=== PATIENT | female | born 1975 | race Caucasian/White ===

== ENCOUNTER 2017-04-19 11:17 | Emergency (ER) | payer BC, OTHER ==
[2017-04-19] MEDS ORDERED: ALBUTEROL NEB 2.5 MG/3 ML INH STA (11:47)
[2017-04-19] MEDS ORDERED: DEXAMETHASONE 10 MG/ML VIAL PO STA (11:47)
[2017-04-19] MEDS ORDERED: CHERRY SYRUP 10 ML UDC PO ONE (11:49)
[2017-04-19] MEDS ORDERED: DEXAMETHASONE 10 MG/ML VIAL ONE (11:49)
--- NOTE | 2017-04-19 11:50 | ED Physician Documentation ---
History of Present Illness - Stated complaint Stated Complaint: DIFFICUTLY BREATHING - Chief complaint Chief Complaint: Resp - Additonal information Additional information: hx from pt 41 y/o f denies preg known asthma 8 weeks of cough, pleurtic cp and soa on qvar, using albuterol MDI s spacer 6 X per day and on prednsione 10 mg daily sx persist called PMD and sent to ER no leg pain swelling Review of Systems Constitutional: denies: Fever, Chills Cardiac: reports: Chest pain / pressure Respiratory: reports: Dyspnea, Cough, Wheezing GI: denies: Abdominal Pain : denies: Now EGA Musculoskeletal: denies: Extremity swelling PD PAST MEDICAL HISTORY - Past Medical History Cardiovascular: None Respiratory: None Neuro: None Endocrine/Autoimmune: HyPOthyroidism GI: None : None HEENT: None Psych: None Musculoskeletal: None Derm: None - Past Surgical History Past Surgical History: Yes General: Cholecystectomy HEENT: Other - Present Medications Home Medications: Ambulatory Orders Medication Instructions Recorded Confirmed Albuterol Sulfate [Proair Hfa 1 inh INH .FREQ 04/19/17 04/19/17 Inhaler] Beclomethasone 40 Mcg [Qvar 40] 1 inh INH BID 04/19/17 04/19/17 Benzonatate [Tessalon] 100 mg PO TID PRN #20 capsule 04/19/17 Liothyronine [Cytomel] 25 mg PO DAILY 04/19/17 04/19/17 Prednisone 10 mg PO DAILY 04/19/17 04/19/17 guaiFENesin/DEXTROMETHORPHAN 10 ml PO Q6H PRN #120 ml 04/19/17 [Robitussin Dm] predniSONE [Deltasone] 20 mg PO [id number] #21 tab 04/19/17 - Allergies Allergies/Adverse Reactions: Allergies Allergy/AdvReac Type Severity Reaction Status Date / Time codeine Allergy Nausea Verified 04/19/17 11:22 gluten Allergy Hives Verified 04/19/17 11:22 lactose Allergy Hives Verified 04/19/17 11:22 beans AdvReac Cramps Uncoded 04/19/17 11:22 chocolate AdvReac Rash Uncoded 04/19/17 11:22 - Social History Does the pt smoke?: No Smoking Status: Former smoker Does the pt drink ETOH?: Yes Does the pt have substance abuse?: No - Immunizations Immunizations are current?: No Immunizations: TDAP >10years/unknown - POLST Patient has POLST: No PD ED PE NORMAL - Vitals Vital signs reviewed: Yes - General General: Alert and oriented X 3 - Neck Neck: Supple, no meningeal sign - Cardiac Cardiac: RRR - Respiratory Respiratory: Other (shallow) - Abdomen Abdomen: Soft, Non tender - Extremities Extremities: Normal ROM s pain, No edema, No calf tenderness / cord - Neuro Neuro: Alert and oriented X 3, No motor deficit - Psych Psych: Normal mood Results - Vitals Vitals: Vital Signs - 24 hr 04/19/17 04/19/17 04/19/17 11:20 12:00 13:20 Temperature 36.9 C Heart Rate 71 80 81 Respiratory 19 20 Rate Blood Pressure 128/78 O2 Saturation 99 98 Oxygen O2 Source Room air - Labs Labs: Laboratory Tests 04/19/17 04/19/17 13:53 13:53 D-Dimer 232.1 Creatinine 0.7 Estimated GFR (MDRD) 93 Serum HCG, Qual NEGATIVE - Rads (name of study) CXR Radiology: See rad report (bronchiol cuffing c/w airway dx, no pna) PD MEDICAL DECISION MAKING - ED course ED course: neg CXR neg d dimer better with triple neb inc steroid dose gave pt MDI to better utilize her MDI will reassure and dc Departure - Departure Disposition: 01 Home, Self Care Clinical Impression: Asthma Qualifiers: Asthma severity: unspecified severity Asthma complication type: with acute exacerbation Qualified Code(s): J45.901 - Unspecified asthma with (acute) exacerbation Condition: Good Instructions: ED Reactive Airway Disease, ED Inhaler Use Follow-Up: Carlyn Canseco PA [Primary Care Provider] - Prescriptions: predniSONE [Deltasone] 20 mg PO [id number] #21 tab guaiFENesin/DEXTROMETHORPHAN [Robitussin Dm] 10 ml PO Q6H PRN #120 ml PRN Reason: Cough Benzonatate [Tessalon] 100 mg PO TID PRN #20 capsule PRN Reason: to ease cough Comments: The xray was fine - no pneumonia The blood tests indicate you do not have a blood clot in your lungs I have increased the steroid dose to try and reduce your airway inflammation And we gave you a spacer to help you get more medication from your inhaler into your lungs And some cough medication to ease the cough and pain. You can also take tylenol for the chest pain. If you think seasonal allergies might be contributing to your asthma I recommend flonase and claritin as well - both available over the counter Forms: Activity restrictions
[2017-04-19] MEDS ORDERED: ALBUTEROL NEB 2.5 MG/3 ML INH ONE (11:56)
[2017-04-19] MEDS ORDERED: KETOROLAC 60 MG/2 ML VIAL IM STA (12:38)
[2017-04-19] MEDS ORDERED: KETOROLAC 60 MG/2 ML VIAL ONE (12:48)
--- NOTE | 2017-04-19 12:55 | XRAY Preliminary Report ---
Exam: XR Chest 2 View PA/LAT IMPRESSION: Bronchial cuffing with increased lung markings may be due to airways disease or bronchiti s/bronchiolitis [facility] SITE ID: [id number]
--- NOTE | 2017-04-19 12:57 | XRAY Report ---
EXAM: CHEST RADIOGRAPHY EXAM DATE: 04/19/2017 12:37 PM. CLINICAL HISTORY: Cough soa pleuritic cp. COMPARISON: Chest radiograph 03/16/2010. TECHNIQUE: 2 views. FINDINGS: Lungs/Pleura: Bronchial cuffing with increased lung markings. No focal opacities. No effusions. Mediastinum: Heart and mediastinal contours are unremarkable. Other: Status post cholecystectomy IMPRESSION: Bronchial cuffing with increased lung markings may be due to airways disease or bronchiti s/bronchiolitis [facility] Referring Provider Line: [phone] SITE ID: [id number]
[2017-04-19 14:23] LABS: CREATININE 0.7 mg/dL (0.4-1.0); GFR - MDRD 93 (>89)
[2017-04-19 14:45] VITALS: BP 121/85
== END 2017-04-19 14:43 | disposition home or self-care (01) ==
LOC: ED 11:17
DX: J45.901 Unspecified asthma with (acute) exacerbation (principal); E03.9 Hypothyroidism, unspecified; Z87.891 Personal history of nicotine dependence
CPT/HCPCS: 36415; 71020; 82565; 84703; 85379; 94640; 94664; 96372; 99283; A9270; J7613

== ENCOUNTER 2017-07-06 20:00 | Emergency (ER) | payer OTHER ==
[2017-07-06 20:25] LABS: BILIRUBIN,URINE NEGATIVE (NEGATIVE); PH,URINE 5.5 PH (5.0-7.5); UA w/ MICROSCOPIC CHARGE YES
[2017-07-06 20:26] LABS: HCG UR QUAL NEGATIVE
[2017-07-06 20:35] LABS: UR CULTURE IF IND NOT INDICATED; WBC,URINE 0-3 /HPF (0-5)
--- NOTE | 2017-07-06 20:51 | ED Physician Documentation ---
PD HPI ABD PAIN - Stated complaint Stated Complaint: R FLANK PAIN - Chief complaint Chief Complaint: Abd Pain - History obtained from History obtained from: Patient - History of Present Illness Timing - onset: Enter time (08:00), Today Timing - duration: Hours Timing - details: Gradual onset, Constant, Waxing and waning Pain level now: 9 Quality: Pain Location: Other (right flank) Radiation: Lower back Improved by: Laying still Worsened by: Moving Associated symptoms: Fever (x 2 days, Tmax 101). No: Nausea, Vomiting, Diarrhea , Constipation, Chest pain Similar symptoms before: Has not had sx before Recently seen: Not recently seen Review of Systems Constitutional: reports: Fever Cardiac: reports: Reviewed and negative Respiratory: reports: Reviewed and negative GI: reports: Abdominal Pain. denies: Nausea, Vomiting, Constipation, Diarrhea : denies: Dysuria, Frequency Skin: reports: Reviewed and negative PD PAST MEDICAL HISTORY - Past Medical History Cardiovascular: None Respiratory: None Neuro: None Endocrine/Autoimmune: HyPOthyroidism GI: None : None HEENT: None Psych: None Musculoskeletal: None Derm: None - Past Surgical History Past Surgical History: Yes General: Cholecystectomy HEENT: Other - Present Medications Home Medications: Ambulatory Orders Medication Instructions Recorded Confirmed Albuterol Sulfate [Proair Hfa 1 inh INH .FREQ 04/19/17 04/19/17 Inhaler] Beclomethasone 40 Mcg [Qvar 40] 1 inh INH BID 04/19/17 04/19/17 Benzonatate [Tessalon] 100 mg PO TID PRN #20 capsule 04/19/17 Liothyronine [Cytomel] 25 mg PO DAILY 04/19/17 04/19/17 Prednisone 10 mg PO DAILY 04/19/17 04/19/17 guaiFENesin/DEXTROMETHORPHAN 10 ml PO Q6H PRN #120 ml 04/19/17 [Robitussin Dm] predniSONE [Deltasone] 20 mg PO [id number] #21 tab 04/19/17 - Allergies Allergies/Adverse Reactions: Allergies Allergy/AdvReac Type Severity Reaction Status Date / Time codeine Allergy Nausea Verified 07/06/17 20:05 gluten Allergy Hives Verified 07/06/17 20:05 lactose Allergy Hives Verified 07/06/17 20:05 beans AdvReac Cramps Uncoded 07/06/17 20:05 chocolate AdvReac Rash Uncoded 07/06/17 20:05 - Social History Does the pt smoke?: No Smoking Status: Former smoker Does the pt drink ETOH?: Yes Does the pt have substance abuse?: No - Immunizations Immunizations are current?: No Immunizations: TDAP >10years/unknown - POLST Patient has POLST: No PD ED PE NORMAL - Vitals Vital signs reviewed: Yes - General General: Alert and oriented X 3, No acute distress, Well developed/nourished - HEENT HEENT: Moist mucous membranes - Cardiac Cardiac: RRR, No murmur - Respiratory Respiratory: No respiratory distress, Clear bilaterally - Abdomen Abdomen: Soft, Non distended, Other (there is minimal tenderness elicited with deep palpation of RLQ and right periumbilical region without rebound or guarding ) - Back Back: No CVA TTP - Derm Derm: Normal color, No rash Results - Vitals Vitals: Vital Signs - 24 hr 07/06/17 07/06/17 07/06/17 20:05 21:41 22:15 Temperature 35.9 C L 37.0 C Heart Rate 63 59 L 72 Respiratory 18 16 14 Rate Blood Pressure 142/87 H 111/74 109/69 O2 Saturation 100 100 97 07/06/17 07/06/17 07/07/17 22:37 23:43 00:29 Temperature 36.6 C 36.3 C L Heart Rate 57 L 66 65 Respiratory 16 16 16 Rate Blood Pressure 119/77 131/76 H 118/68 O2 Saturation 100 98 99 Oxygen O2 Source Room air - Labs Labs: Laboratory Tests 07/06/17 07/06/17 07/06/17 20:00 21:30 21:30 WBC 4.4 L RBC 4.59 Hgb 14.6 Hct 42.6 MCV 92.9 MCH 31.9 H MCHC 34.3 RDW 13.0 Plt Count 157 MPV 9.3 Neut # 2.3 Lymph # 1.5 Bell # 0.5 Eos # 0.1 Baso # 0.0 Absolute Nucleated RBC 0.00 Nucleated RBCs 0.0 Sodium 138 Potassium 3.5 Chloride 104 Carbon Dioxide 26 Anion Gap 8.0 BUN 14 Creatinine 0.9 Estimated GFR (MDRD) 70 L Glucose 91 Calcium 8.5 Total Bilirubin 0.5 AST 23 ALT 22 Alkaline Phosphatase 56 Total Protein 6.9 Albumin 4.3 Globulin 2.6 Albumin/Globulin Ratio 1.7 Lipase 32 Urine Color YELLOW Urine Clarity CLEAR Urine pH 5.5 Ur Specific [place] >=1.030 H Urine Protein NEGATIVE Urine Glucose (UA) NEGATIVE Urine Ketones NEGATIVE Urine Occult Blood MODERATE H Urine Nitrite NEGATIVE Urine Bilirubin NEGATIVE Urine Urobilinogen 0.2 (NORMAL) Ur Leukocyte Esterase NEGATIVE Urine RBC 0-5 Urine WBC 0-3 Ur Squamous Epith Cells MANY Squamous H Urine Bacteria Few Ur Microscopic Review INDICATED Urine Culture Comments NOT INDICATED Urine HCG, Qual NEGATIVE - Rads (name of study) CT A/P Radiology: Prelim report reviewed, See rad report PD MEDICAL DECISION MAKING - ED course Complexity details: reviewed results, re-evaluated patient, considered differential, d/w patient Departure - Departure Disposition: 01 Home, Self Care Clinical Impression: Flank pain Condition: Good Instructions: ED Flank Pain Uncertain Cause Follow-Up: Carlyn Canseco PA [Primary Care Provider] - (Call to arrange for next available appointment) Discharge Date/Time: 07/07/17 00:30
[2017-07-06] MEDS ORDERED: KETOROLAC 60 MG/2 ML VIAL IVP STA (21:06)
[2017-07-06] MEDS ORDERED: SODIUM CHLORIDE 0.9% 1,000 ML IV STA (21:06)
[2017-07-06] MEDS ORDERED: KETOROLAC 30 MG/ML VIAL ONE (21:17)
[2017-07-06 21:47] LABS: BASOPHILS % (AUTO) 0.5 %; EOSINOPHILS # (AUTO) 0.1 10^3/uL (0.0-0.7); EOSINOPHILS % (AUTO) 2.8 %; HCT - HEMATOCRIT 42.6 % (37.0-47.0); HGB - HEMOGLOBIN 14.6 g/dL (12.0-16.0); LYMPHOCYTES # (AUTO) 1.5 10^3/uL (1.5-3.5); LYMPHOCYTES % (AUTO) 33.7 %; MEAN CORPUSCULAR HEMOGLOBIN 31.9 pg (27.0-31.0); MEAN CORPUSCULAR HGB CONC 34.3 g/dL (32.0-36.0); MEAN CORPUSCULAR VOLUME 92.9 fL (81.0-99.0); MEAN PLATELET VOLUME 9.3 fL (7.9-10.8); MONOCYTES # (AUTO) 0.5 10^3/uL (0.0-1.0); MONOCYTES % (AUTO) 10.5 %; NEUTROPHILS # (AUTO) 2.3 10^3/uL (1.5-6.6); NEUTROPHILS % (AUTO) 52.5 %; RED BLOOD COUNT 4.59 10^6/uL (4.20-5.40); UNCORRECTED WHITE BLOOD COUNT 4.4 x10^3/uL; WHITE BLOOD COUNT 4.4 x10^3/uL (4.8-10.8)
[2017-07-06 21:57] LABS: ALBUMIN/GLOBULIN RATIO 1.7 (1.0-2.2); BILIRUBIN,TOTAL 0.5 mg/dL (0.2-1.0); CALCIUM 8.5 mg/dL (8.5-10.3); CREATININE 0.9 mg/dL (0.4-1.0); POTASSIUM 3.5 mmol/L (3.5-5.0); TOTAL PROTEIN 6.9 g/dL (6.7-8.2)
[2017-07-06] MEDS ORDERED: IOPAMIDOL-300 100 ML VIAL IVP ONE (22:19)
--- NOTE | 2017-07-06 22:41 | CT Preliminary Report ---
Exam: CT Abdomen/Pelvis W/ IMPRESSION: 1. No acute abnormalities in the abdomen and pelvis. 2. Cholecystectomy. 3. Left fallopian tube occlusion device noted. [facility] SITE ID: [id number]
--- NOTE | 2017-07-06 22:44 | CT Report ---
EXAM: CT ABDOMEN AND PELVIS EXAM DATE: 07/06/2017 10:23 PM. CLINICAL HISTORY: Right flank/abdomen pain. COMPARISONS: None. TECHNIQUE: Routine helical CT imaging was performed through the abdomen and pelvis. IV contrast: 100 cc of Isovue-300. Enteric contrast: No. Reconstructions: Coronal and sagittal. In accordance with CT protocol optimization, one or more of the following dose reduction techniques w ere utilized for this exam: automated exposure control, adjustment of mA and/or KV based on patient s ize, or use of iterative reconstructive technique. FINDINGS: Lung Bases: Unremarkable. Liver: Normal. No masses. Gallbladder/Bile Ducts: Cholecystectomy. No dilated ducts. Spleen: Normal. Pancreas: Normal. Adrenal Glands: Normal. Kidneys: Normal. No masses or hydronephrosis. Peritoneal Cavity/Bowel: Normal. No free fluid, free air or adenopathy. No masses or acute inflammato ry process. The appendix is well visualized and normal. Pelvic Organs: Fallopian tube occlusion device noted on the left, otherwise unremarkable reproductive organs and bladder. Vasculature: No aneurysms or other significant abnormality. Bones: No significant abnormality. Other: None. IMPRESSION: 1. No acute abnormalities in the abdomen and pelvis. 2. Cholecystectomy. 3. Left fallopian tube occlusion device noted. [facility] Referring Provider Line: [phone] SITE ID: [id number]
[2017-07-07 00:30] VITALS: BP 118/68
== END 2017-07-07 00:30 | disposition home or self-care (01) ==
LOC: ED 20:00
DX: R10.31 Right lower quadrant pain (principal); E03.9 Hypothyroidism, unspecified; Z87.891 Personal history of nicotine dependence
CPT/HCPCS: 36415; 74177; 80053; 81001; 81025; 83690; 85025; 96361; 96374; 99284; Q9967; 81003; 87086

== ENCOUNTER 2017-12-06 15:06 | Outpatient (CLI) | payer OTHER ==
--- NOTE | 2017-12-06 15:59 | CT Report ---
EXAM: CT ABDOMEN AND PELVIS EXAM DATE: 12/06/2017 03:45 PM. CLINICAL HISTORY: SEVERE LT BACK/FLANK PAIN X 3DAYS 08/29 PAIN. COMPARISONS: 07/06/2017. TECHNIQUE: Routine helical CT imaging was performed through the abdomen and pelvis. IV contrast: No. Enteric contrast: No. Reconstructions: Coronal and sagittal. In accordance with CT protocol optimization, one or more of the following dose reduction techniques w ere utilized for this exam: automated exposure control, adjustment of mA and/or KV based on patient s ize, or use of iterative reconstructive technique. FINDINGS: Lung Bases: Unremarkable. Liver: Normal. No masses. Gallbladder/Bile Ducts: The gallbladder is surgically absent. Spleen: Normal. Pancreas: Normal. Adrenal Glands: Normal. Kidneys: No kidney stones or hydronephrosis. Kidneys are normal in size. The distal ureters are not w ell seen. Peritoneal Cavity/Bowel: Normal. No free fluid, free air or adenopathy. No masses or acute inflammato ry process. The appendix is well visualized and normal. Pelvic Organs: There is a implanted device in the left fallopian tube. There is a rounded hypodensity in the right adnexa measuring approximately 2.5 cm in diameter. No abnormal pelvic fluid collection. The urinary bladder is completely empty. The left ovary appears normal in size. Vasculature: No aneurysms or other significant abnormality. Bones: No significant abnormality. Other: None. IMPRESSION: 1. No CT abnormality to explain left flank pain. No urolithiasis or hydronephrosis. 2. 2.5 cm follicle or cyst in the right ovary. [facility] Referring Provider Line: [phone] SITE ID: [id number]
--- NOTE | 2017-12-06 15:59 | CT Preliminary Report ---
Exam: CT ABDOMEN/PELVIS W/O IMPRESSION: 1. No CT abnormality to explain left flank pain. No urolithiasis or hydronephrosis. 2. 2.5 cm follicle or cyst in the right ovary. [facility] SITE ID: [id number]
--- NOTE | 2017-12-06 16:11 | CT Report ---
EXAM: CT LUMBAR SPINE WITHOUT CONTRAST EXAM DATE: 12/06/2017 03:45 PM. CLINICAL HISTORY: SEVERE LT BACK/FLANK PAIN X 3DAYS 10/10 PAIN. COMPARISONS: None. TECHNIQUE: Thin-section axial images were acquired of the lumbar spine from T12 to S1 without contras t. Post-processing: Coronal and sagittal reformats. Other: None. In accordance with CT protocol optimization, one or more of the following dose reduction techniques w ere utilized for this exam: automated exposure control, adjustment of mA and/or KV based on patient s ize, or use of iterative reconstructive technique. FINDINGS: Alignment: No scoliosis or spondylolisthesis. Bones: Five [id number] lumbar vertebral bodies are present. No fractures or bone lesions. Disk Levels/Facets: T12-L1: Mild anterior disk osteophyte spurring. L1-L2: Unremarkable. L2-L3: Broad-based disk bulge with minimal central spinal canal narrowing. L3-L4: Unremarkable. L4-L5: Unremarkable. L5-S1: Unremarkable. Musculature: Normal. No fatty atrophy. Other: The visualized retroperitoneum is unremarkable. IMPRESSION: Disk bulge at L2-L3. No fracture or subluxation. [facility] Referring Provider Line: [phone] SITE ID: [id number]
== END 2017-12-06 15:07 | disposition home or self-care (01) ==
LOC: DI 15:06
PROVIDERS: ATTEND Naturopath
DX: M51.86 Other intervertebral disc disorders, lumbar region (principal); R10.9 Unspecified abdominal pain
CPT/HCPCS: 72131; 74176

== ENCOUNTER 2018-01-02 14:37 | Outpatient (CLI) | payer OTHER ==
--- NOTE | 2018-01-03 09:26 | XRAY Report ---
FRONTAL CHEST WITH LEFT RIBS: 01/02/2018 CLINICAL INDICATION: Pain. FINDINGS: Frontal view of the chest and oblique views of the left ribs demonstrate no evidence of displaced rib fracture. The cardiac silhouette is within normal limits. The lungs are clear. No effusion or pneumothorax is present. IMPRESSION: NO EVIDENCE OF A DISPLACED RIB FRACTURE. TD: 01/03/2018 09:25
--- NOTE | 2018-01-03 09:27 | XRAY Report ---
TWO VIEW THORACIC SPINE: 01/02/2018 CLINICAL INDICATION: Pain. FINDINGS: Frontal and lateral views of the thoracic spine demonstrate normal height and alignment of the vertebral bodies. The disk spaces are preserved. There is no evidence of compression fracture. No paraspinal hematoma is seen. IMPRESSION: NORMAL THORACIC SPINE. TD: 01/03/2018 09:26
--- NOTE | 2018-01-03 09:28 | XRAY Report ---
THREE VIEW LUMBAR SPINE: 01/02/2018 CLINICAL INDICATION: Low back pain. COMPARISON: 10/29/2012, CT 12/06/2017. FINDINGS: AP, lateral, cone-down views of the lumbar spine demonstrate normal height and alignment of the vertebral bodies. Unfused apophysis of L3 is stable. The disk spaces are preserved. Minimal levoscoliosis is present, which may be positional in nature. IMPRESSION: MINIMAL LEVOSCOLIOSIS, WHICH MAY BE POSITIONAL IN NATURE. NO EVIDENCE OF INTERVAL FRACTURE FROM CT OF 12/06/2017. TD: 01/03/2018 11:38 MTDD
== END 2018-01-02 14:38 | disposition home or self-care (01) ==
LOC: DI.S 14:37
PROVIDERS: ATTEND Internal Medicine
DX: M54.6 Pain in thoracic spine (principal); M54.5 Low back pain
CPT/HCPCS: 72070; 72100

== ENCOUNTER 2018-09-26 20:06 | Emergency (ER) | payer OTHER ==
--- NOTE | 2018-09-26 21:31 | ED Physician Documentation ---
PD HPI LOWER EXT INJURY - Stated complaint Stated Complaint: LT LEG HOT/THROBBING PAIN - Chief complaint Chief Complaint: Ext Problem - History obtained from History obtained from: Patient - History of Present Illness PD HPI LOW EXT INJURY LOCATION: Lower leg (She noted left leg swelling and slight pain today. No chest pain, dizziness, or shortness of breath. No history of DVT or PE.) Review of Systems Constitutional: reports: Reviewed and negative Cardiac: reports: Reviewed and negative Respiratory: reports: Reviewed and negative PD PAST MEDICAL HISTORY - Past Medical History Past Medical History: Yes Cardiovascular: None Respiratory: None Endocrine/Autoimmune: HyPOthyroidism GI: None : None HEENT: None Psych: None Musculoskeletal: None Derm: None Other Past Medical History: plantar facitis - Past Surgical History Past Surgical History: Yes General: Cholecystectomy HEENT: Other - Present Medications Home Medications: Ambulatory Orders Medication Instructions Recorded Confirmed Albuterol Sulfate [Proair Hfa 1 inh INH .FREQ 04/19/17 04/19/17 Inhaler] Beclomethasone 40 Mcg [Qvar 40] 1 inh INH BID 04/19/17 04/19/17 Benzonatate [Tessalon] 100 mg PO TID PRN #20 capsule 04/19/17 Liothyronine [Cytomel] 25 mg PO DAILY 04/19/17 04/19/17 guaiFENesin/DEXTROMETHORPHAN 10 ml PO Q6H PRN #120 ml 04/19/17 [Robitussin Dm] predniSONE [Deltasone] 20 mg PO [id number] #21 tab 04/19/17 predniSONE [Prednisone] 10 mg PO DAILY 04/19/17 04/19/17 - Allergies Allergies/Adverse Reactions: Allergies Allergy/AdvReac Type Severity Reaction Status Date / Time codeine Allergy Nausea Verified 09/26/18 20:15 gluten Allergy Hives Verified 09/26/18 20:15 lactose Allergy Hives Verified 09/26/18 20:15 potato Allergy Unknown Verified 09/26/18 20:15 beans AdvReac Cramps Uncoded 09/26/18 20:15 chocolate AdvReac Rash Uncoded 09/26/18 20:15 - Social History Does the pt smoke?: No Smoking Status: Never smoker Does the pt drink ETOH?: Yes ETOH Use: Wine Does the pt have substance abuse?: No - Immunizations Immunizations are current?: Yes Immunizations: TDAP current <10years - POLST Patient has POLST: No PD ED PE NORMAL - Vitals Vital signs reviewed: Yes - General General: Alert and oriented X 3, No acute distress - Extremities Extremities: Other (She has an area of dilated veins on the medial upper left calf without tenderness or pedal edema.) - Neuro Neuro: Alert and oriented X 3, Normal speech Results - Vitals Vitals: Vital Signs - 24 hr 09/26/18 20:10 Temperature 36.7 C Heart Rate 72 Respiratory 16 Rate Blood Pressure 161/93 H O2 Saturation 97 Oxygen O2 Source Room air - Rads (name of study) LLE sono Radiology: Prelim report reviewed (superficial thrombophlebitis) Departure - Departure Disposition: 01 Home, Self Care Clinical Impression: Superficial thrombophlebitis Qualifiers: Superficial thrombophlebitis-Involved body area: lower extremity Laterality: left Qualified Code(s): I80.02 - Phlebitis and thrombophlebitis of superficial vessels of left lower extremity Condition: Good Record reviewed to determine appropriate education?: Yes Instructions: ED Phlebitis Superficial Comments: Your blood pressure was elevated today on check into the emergency department. This does not mean that you have hypertension, it is a common phenomenon to come to the emergency department and have elevated blood pressure. I recommend that you see your primary care physician within the week to have it rechecked when you are feeling better.
--- NOTE | 2018-09-26 21:37 | Ultrasound Report ---
Reason: Leg pain Procedure Date: 09/26/2018 Accession Number: [id number] / [id number] Procedure: US - Duplex Ext Veins Left CPT Code: FULL RESULT: EXAM: LEFT LOWER EXTREMITY VENOUS ULTRASOUND EXAM DATE: 09/26/2018 09:14 PM. CLINICAL HISTORY: Leg pain. Left leg pain. COMPARISON: None. TECHNIQUE: Real-time sonographic vascular imaging was performed by the tool machine set up operator through the lower extremity utilizing both color-flow and Doppler spectral analysis. Multiple cordage sales representative static images were saved for review. FINDINGS: Common Femoral Vein (CFV): Normal. CFV-GSV Junction: Normal. Profunda Femoral Vein (PFV): Normal. Femoral Vein (FV) Prox: Normal. Femoral Vein (FV) Mid: Normal. Femoral Vein (FV) Dist: Normal. Popliteal Vein: Normal. Posterior Tibial Veins: Limited visualization. Peroneal Veins: Limited visualization. Other: Superficial thrombosis within the varicose veins in the left proximal to distal calf. This is the area of pain. IMPRESSION: 1. No evidence for deep venous thrombosis. 2. Superficial thrombosis within the varicose veins in the left proximal to distal calf. This is the area of pain. [facility]
[2018-09-26 21:59] VITALS: BP 128/69
== END 2018-09-26 22:00 | disposition home or self-care (01) ==
LOC: ED 20:06
DX: I80.02 Phlebitis and thrombophlebitis of superficial vessels of left lower extremity (principal); R03.0 Elevated blood-pressure reading, without diagnosis of hypertension; E03.9 Hypothyroidism, unspecified
CPT/HCPCS: 99281; 99283

== ENCOUNTER 2018-12-25 19:53 | Emergency (ER) | payer OTHER ==
[2018-12-25 20:05] VITALS: BP 149/79
--- NOTE | 2018-12-25 20:27 | ED Physician Documentation ---
PD HPI LOWER EXT INJURY - Stated complaint Stated Complaint: LEG PX/SENT BY - Chief complaint Chief Complaint: Trauma Ext - History obtained from History obtained from: Patient - History of Present Illness PD HPI LOW EXT INJURY LOCATION: Right, Lower leg Type of injury: Other (states felt a pop when standing up after playing monopoly a few days ago.) Timing - duration: Days (several) Pain level max: 8 Pain level now: 6 Improved by: Rest, Ice, Immobilization Worsened by: Moving, Palpating Associated symptoms: No: Weakness, Numbness, Tingling, Swelling Contributing factors: No: Anticoagulated - Additional information Additional information: 43-year-old female presents to the emergency department with a right knee injury several days ago, was seen at [facility] in [place] and has a MRI of the knee that shows edema of the gastrocnemius head, likely strain. On this MRI however there was a question of a filling defect in the popliteal vein and was sent here for ultrasound for possible DVT. Review of Systems Constitutional: denies: Fever Respiratory: denies: Cough GI: denies: Nausea, Vomiting : denies: Now EGA Skin: denies: Rash Musculoskeletal: denies: Neck pain, Back pain PD PAST MEDICAL HISTORY - Past Medical History Cardiovascular: None Respiratory: None Endocrine/Autoimmune: HyPOthyroidism GI: None : None HEENT: None Psych: None Musculoskeletal: None Derm: None - Past Surgical History Past Surgical History: Yes General: Cholecystectomy HEENT: Other - Present Medications Home Medications: Ambulatory Orders Medication Instructions Recorded Confirmed Albuterol Sulfate [Proair Hfa 1 inh INH .FREQ 04/19/17 04/19/17 Inhaler] Beclomethasone 40 Mcg [Qvar 40] 1 inh INH BID 04/19/17 04/19/17 Benzonatate [Tessalon] 100 mg PO TID PRN #20 capsule 04/19/17 Liothyronine [Cytomel] 25 mg PO DAILY 04/19/17 04/19/17 guaiFENesin/DEXTROMETHORPHAN 10 ml PO Q6H PRN #120 ml 04/19/17 [Robitussin Dm] predniSONE [Deltasone] 20 mg PO [id number] #21 tab 04/19/17 predniSONE [Prednisone] 10 mg PO DAILY 04/19/17 04/19/17 Rivaroxaban [Xarelto] 15 mg PO BID #42 tablet 12/25/18 - Allergies Allergies/Adverse Reactions: Allergies Allergy/AdvReac Type Severity Reaction Status Date / Time codeine Allergy Nausea Verified 12/25/18 20:05 gluten Allergy Hives Verified 12/25/18 20:05 lactose Allergy Hives Verified 12/25/18 20:05 potato Allergy Unknown Verified 12/25/18 20:05 beans AdvReac Cramps Uncoded 12/25/18 20:05 chocolate AdvReac Rash Uncoded 12/25/18 20:05 - Social History Does the pt smoke?: No Smoking Status: Never smoker Does the pt drink ETOH?: Yes Does the pt have substance abuse?: No - Immunizations Immunizations are current?: Yes Immunizations: TDAP current <10years - POLST Patient has POLST: No PD ED PE NORMAL - Vitals Vital signs reviewed: Yes - General General: Alert and oriented X 3, No acute distress - Derm Derm: Warm and dry - Extremities Extremities: Other (Mild swelling of the right lower extremity. No calf tenderness or cord. NVI) - Neuro Neuro: Alert and oriented X 3 - Psych Psych: Normal mood, Normal affect Results - Vitals Vitals: Vital Signs - 24 hr 12/25/18 20:02 Temperature 36.2 C L Heart Rate 65 Respiratory 16 Rate Blood Pressure 149/79 H O2 Saturation 97 Oxygen O2 Source Room air - Rads (name of study) Duplex ultrasound right lower extremity Radiology: Prelim report reviewed, EMP read contemporaneously, See rad report (Occlusive deep venous thrombosis from the proximal femoral vein to the calf veins) PD MEDICAL DECISION MAKING - ED course Complexity details: reviewed results, re-evaluated patient, considered differential, d/w patient, d/w family ED course: 43-year-old female presents to the emergency department with an abnormal MRI finding of the popliteal vein. She does have an occlusive DVT from the proximal femoral vein to the calf veins. Will place on anticoagulation for this. This is non-provoked. Discussed warfarin and Lovenox versus Xarelto. She chooses Xarelto at this time. She does understand the risks and that it is a nonreversible medication at this time. Given the first dose here and will write a prescription. Will follow up with her doctor for further care. Patient counseled regarding signs and symptoms for which I believe and urgent re- evaluation would be necessary. Patient with good understanding of and agreement to plan and is comfortable going home at this time This document was made in part using voice recognition software. While efforts are made to proofread this document, sound alike and grammatical errors may occur. Departure - Departure Disposition: 01 Home, Self Care Clinical Impression: DVT (deep venous thrombosis) Qualifiers: DVT location: lower extremity Affected thrombotic vein of extremity: unspecified vein of extremity Chronicity: unspecified Laterality: right Qualified Code(s): I82.401 - Acute embolism and thrombosis of unspecified deep veins of right lower extremity Condition: Good Instructions: ED DVT Follow-Up: TORREY EDUARDO ND [Primary Care Provider] - Within 1 week Prescriptions: Rivaroxaban [Xarelto] 15 mg PO BID #42 tablet Comments: You will be on Xarelto, 15 mg by mouth twice a day for the next 21 days. On day 22, you will need to be on 20 mg once a day. This will likely be continued for at least 3-6 months. Your doctor will likely want to perform further testing for blood clotting disorders such as factor V Leiden, protein C and protein S deficiency, etc. They may also want to refer you to a testing director for further evaluation. Return if you worsen. Return especially for any head injury, significant abdominal injuries or bleeding in your GI tract such as rectal bleeding. Occlusive deep venous thrombosis from the proximal femoral vein to the calf veins. Discharge Date/Time: 12/25/18 21:52
--- NOTE | 2018-12-25 21:29 | Ultrasound Report ---
Reason: possible DVT vs artifact in popliteal vein on MRI Procedure Date: 12/25/2018 Accession Number: [id number] / [id number] Procedure: US - Duplex Ext Veins Right CPT Code: FULL RESULT: EXAM: RIGHT LOWER EXTREMITY VENOUS ULTRASOUND EXAM DATE: 12/25/2018 09:11 PM. CLINICAL HISTORY: DVT in popliteal vein on MRI. COMPARISON: None. TECHNIQUE: Real-time sonographic vascular imaging was performed by the toaster operator through the lower extremity utilizing both color-flow and Doppler spectral analysis. Multiple sales and marketing representative static images were saved for review. FINDINGS: Common Femoral Vein (CFV): Normal. CFV-GSV Junction: Normal. Profunda Femoral Vein (PFV): Normal. Femoral Vein (FV) Prox: Occlusive thrombus Femoral Vein (FV) Mid: Occlusive thrombus Femoral Vein (FV) Dist: Occlusive thrombus Popliteal Vein: Occlusive thrombus Posterior Tibial Veins: Occlusive thrombus Peroneal Veins: Occlusive thrombus Contralateral Side CFV: Normal. Other: None. IMPRESSION: Occlusive deep venous thrombosis from the proximal femoral vein to the calf veins. [facility] The call report notification system was initiated by Dr. Ezequiel Cardenas at 09:26 PM on 12/25/2018. The above findings were discussed with Alphonso Winslow by Dr. Ezequiel Cardenas at 09:28 PM on 12/25/2018.
[2018-12-25] MEDS ORDERED: RIVAROXABAN 15 MG TABLET PO STA (21:32)
== END 2018-12-25 21:52 | disposition home or self-care (01) ==
LOC: ED 19:53
DX: I82.401 Acute embolism and thrombosis of unspecified deep veins of right lower extremity (principal); E03.9 Hypothyroidism, unspecified
CPT/HCPCS: 93971; 99283; A9270

== ENCOUNTER 2019-01-29 23:54 | Outpatient (CLI) | payer OTHER | END 2019-01-29 23:55 | disposition short-term general hospital (02) | LOC: EMS 23:54 | PROVIDERS: ATTEND Surgery | DX: R07.9 Chest pain, unspecified (principal); R06.02 Shortness of breath; Z86.711 Personal history of pulmonary embolism; Z86.718 Personal history of other venous thrombosis and embolism | CPT/HCPCS: A0425; A0427 ==

== ENCOUNTER 2019-07-18 15:31 | Outpatient (CLI) | payer OTHER ==
[2019-07-18 17:58] LABS: THYROID STIMULATING HORMONE < 0.08 uIU/mL (0.34-5.60)
== END 2019-07-18 15:32 | disposition home or self-care (01) ==
LOC: LAB.S 15:31
PROVIDERS: ATTEND Naturopath
DX: E03.9 Hypothyroidism, unspecified (principal)
CPT/HCPCS: 36415; 84439; 84443; 84481; 84482; 86141

== ENCOUNTER 2020-08-12 12:05 | Outpatient (CLI) | payer OTHER ==
[2020-08-12 15:20] LABS: BASOPHILS % (AUTO) 0.7 %; EOSINOPHILS # (AUTO) 0.1 10^3/uL (0.0-0.7); EOSINOPHILS % (AUTO) 2.3 %; HGB - HEMOGLOBIN 14.1 g/dL (12.0-16.0); LYMPHOCYTES # (AUTO) 1.6 10^3/uL (1.5-3.5); LYMPHOCYTES % (AUTO) 28.5 %; MEAN CORPUSCULAR HEMOGLOBIN 30.8 pg (27.0-31.0); MEAN CORPUSCULAR HGB CONC 32.5 g/dL (32.0-36.0); MEAN CORPUSCULAR VOLUME 94.8 fL (81.0-99.0); MEAN PLATELET VOLUME 11.5 fL (7.9-10.8); MONOCYTES # (AUTO) 0.4 10^3/uL (0.0-1.0); MONOCYTES % (AUTO) 7.8 %; NEUTROPHILS # (AUTO) 3.4 10^3/uL (1.5-6.6); NEUTROPHILS % (AUTO) 60.5 %; PLT - PLATELET COUNT 217 10^3/uL (130-450); RED BLOOD COUNT 4.58 10^6/uL (4.20-5.40); RED CELL DISTRIBUTION WIDTH 14.1 % (12.0-15.0); WHITE BLOOD COUNT 5.6 x10^3/uL (4.8-10.8)
[2020-08-12 15:59] LABS: % IRON SATURATION 79 % (20-50); IRON 260 ug/dL (28-170); TOTAL IRON BINDING CAPACITY 329 ug/dL (250-450); TRANSFERRIN 235 mg/dL (192-382)
== END 2020-08-12 12:06 | disposition home or self-care (01) ==
LOC: LAB.S 12:05
PROVIDERS: ATTEND Naturopath
DX: R23.3 Spontaneous ecchymoses (principal)
CPT/HCPCS: 36415; 82728; 83540; 84466; 85025